=== PATIENT | male | born 1970 | race African-American/Black ===

== ENCOUNTER 2016-10-03 11:18 | Day surgery (SDC) | payer BC ==
[2016-09-29 11:40] LABS: HEMATOCRIT 39.1 % (40.0-51.0); HEMOGLOBIN 13.8 g/dL (13.6-17.8)
[2016-09-29 11:53] LABS: BUN (BLOOD UREA NITROGEN) 12 MG/DL (6-23); CALCIUM, SERUM 9.5 MG/DL (8.5-10.4); CHLORIDE, SERUM 103 MMOL/L (96-112); CO2 (CARBON DIOXIDE) 31 MMOL/L (24-34); CREATININE 0.91 MG/DL (0.70-1.30); GFR AFRICAN AMERICAN 118 ML/MIN (>=60); GFR NON AFRICAN AMERICAN 101 ML/MIN (>=60); GLUCOSE, SERUM 176 MG/DL (60-99); SODIUM, SERUM 142 MMOL/L (135-148)
--- NOTE | ~2016-10-03 | OP ---
Record Of Operation [facility] [address] [place]. [address] NAME: GERMAN CONTRERAS : 72 STATUS : [facility]#: [id number] AGE: 46 ADM/REG DATE : 10/03/16 MR#: [id number] REPORT SERV DATE: 10/04/16 DICTATED BY: ROE BAUTISTA DATE: 10/03/16 REPORT STATUS : Draft TRANSCRIBED BY: MODSavanah DATE: 10/03/16 DATE OF PROCEDURE: 10/03/2016 PREOPERATIVE DIAGNOSIS: Right neck mass. POSTOPERATIVE DIAGNOSIS: Right neck mass. PROCEDURE: Excision of a right deep neck mass embedded in the paraspinous muscles. SURGEON: Roe Bautista M.D. ELECTRICAL CAD DESIGNER: Byron. ESTIMATED BLOOD LOSS: 3 mL. INTRAOPERATIVE FLUIDS: 400 mL crystalloid. INTRAOPERATIVE FINDINGS: Well-circumscribed mass measuring approximately 3.5 cm in diameter, which was not adherent to the surrounding muscle. A frozen section performed on this nodule demonstrated no evidence of malignancy. 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 OPERATIVE PROCEDURE: The patient was identified in the holding room, transported to the operating room. In the operating room, the patient was placed on the operating table in supine position. Following induction of anesthesia, the patient was intubated without difficulty. The patient was then placed in a left lateral decubitus position. A proposed incision was diagrammed on the posterolateral portion of the right neck, with the resultant incision centered over the bleeding edge of the trapezius muscle on the right side. This area was then injected with 1% lidocaine with 1:100,000 epinephrine. The patient was prepped and draped in a sterile fashion. An incision was created through the aforementioned area of the skin of the neck. Dissection was carried through the subcutaneous tissues to the level of the trapezius muscle. The skin surrounding the incision was undermined in a subcutaneous plane. Hemostasis was achieved with the use of the bipolar cautery. The anterior border of the trapezius muscle was identified. Dissection will be carried along the bleeding edge of the trapezius muscle in the visualized portion of the neck. Dissecting along the surface of the trapezius muscle, the underlying mass was encountered. There was a thin layer of paraspinous muscle overlying the mass, which was divided. This did allow for finger dissection of the underlying mass, which was removed using blunt dissection. The tissue was sent to surgical pathology for histologic evaluation. Hemostasis was achieved with the use of the bipolar cautery. A small amount of SurgiFlo was placed into the operative bed. The muscular pocket, from which the mass was removed, was closed using a 3-0 Vicryl suture approximating the paraspinous muscle and leading edge of the trapezius muscle. The 3-0 Vicryl suture was then used to approximate the subcutaneous tissues. A running 4-0 Prolene suture was placed in a simple fashion for skin closure. Prior to departure from the operating room, the pathologist did note the above findings, with a benign-appearing lesion, for which further identification will be deferred pending permanent histology. The patient Record Of [address] [place]. [address] NAME: GERMAN CONTRERAS : 72 STATUS : [facility] PAT#: [id number] AGE: 46 ADM/REG DATE : 10/03/16 MR#: [id number] REPORT SERV DATE: 10/04/16 DICTATED BY: ROE BAUTISTA DATE: 10/03/16 REPORT STATUS : Draft TRANSCRIBED BY: DELMY DATE: 10/03/16 was subsequently awakened from anesthesia, extubated in the operating room, transported to the recovery room in good condition. The patient tolerated the procedure well. There were no apparent complications. Specimen included right deep neck mass. RICKEY/DELMY Roe Bautista M.D. / [id number] CC: Roe Bautista M.D.
[~2016-10-03 11:18] MED LIST: COREG6 PO; CYANO1000T PO; DSS PO; DYAZIDE1 CAP PO; GLUCOPHAGE1000 MG PO; GLUCOTRO10 PO; LANTUSCART SC; MAX25 PO; NORCO1 TA1 PO; NORV10 PO; OXECTA5 MG PO; TOUJEO SQ
== END 2016-10-03 18:34 | disposition home or self-care (01) ==
LOC: SDC 11:18
PROVIDERS: Otolaryngology
PROC: 0KQ20ZZ Repair Right Neck Muscle, Open Approach (ICD-10-PCS; 2016-10-03)
PROC: 0KB20ZZ Excision of Right Neck Muscle, Open Approach (ICD-10-PCS; principal; 2016-10-03 13:15)
DX: D36.10 Benign neoplasm of peripheral nerves and autonomic nervous system, unspecified (principal); F17.290 Nicotine dependence, other tobacco product, uncomplicated; I10 Essential (primary) hypertension; E11.9 Type 2 diabetes mellitus without complications; J45.909 Unspecified asthma, uncomplicated; G47.33 Obstructive sleep apnea (adult) (pediatric); Z85.528 Personal history of other malignant neoplasm of kidney; Z90.5 Acquired absence of kidney; Z99.89 Dependence on other enabling machines and devices; Z86.2 Personal history of diseases of the blood and blood-forming organs and certain disorders involving the immune mechanism; Z88.8 Allergy status to other drugs, medicaments and biological substances; Z79.84 Long term (current) use of oral hypoglycemic drugs; Z79.4 Long term (current) use of insulin; Z79.899 Other long term (current) drug therapy
CPT/HCPCS: 80048; 82962; 85014; 85018; 88307; 88331; 88341; 88342; 93005; A9270-GY; J0690; J2250; J2405; J2710; J3010